=== PATIENT | female | born 1960 | race Caucasian/White ===

== ENCOUNTER 2017-05-03 21:55 | Emergency (ER) | payer MEDICARE ==
[~2017-05-03] VITALS: Ht 170.2 cm; Wt 112.0 kg
[~2017-05-03 21:55] MED LIST: ALPR0.25 PO; LISI1TAB3 PO; OXYC5TAB2 PO
[2017-05-03 23:01] LABS: MICROSCOPIC AUTO
[2017-05-03 23:04] LABS: CULTURE INDICATED? YES
[2017-05-04 00:07] LABS: BASOPHILS # (AUTO) 0.18 x10^3/uL (0-0.1); BASOPHILS % (AUTO) 2 % (0-1); EOSINOPHILS # (AUTO) 1.04 x10^3/uL (0-0.4); EOSINOPHILS % (AUTO) 9 % (1-7); LYMPHOCYTES # (AUTO) 4.41 x10^3/uL (1-3.4); LYMPHOCYTES % (AUTO) 40 % (22-44); MD NO; MEAN CORPUSCULAR HEMOGLOBIN 29.6 pg (27.0-34.8); MEAN CORPUSCULAR HGB CONC 33.2 g/dL (32.4-35.8); MEAN CORPUSCULAR VOLUME 89.2 fL (80-100); MEAN PLATELET VOLUME 7.7 fL (7.4-10.4); MONOCYTES # (AUTO) 0.62 x10^3/uL (0.2-0.8); MONOCYTES % (AUTO) 6 % (2-9); NEUTROPHILS # (AUTO) 4.92 x10^3/uL (1.8-6.8); NEUTROPHILS % (AUTO) 44 % (42-75); PLATELET COUNT 432 x10^3/uL (130-400); RED CELL DISTRIBUTION WIDTH 14.7 % (9.6-15.2)
[2017-05-04 00:16] LABS: ALANINE AMINOTRANSFERASE 21 U/L (12-78); ALBUMIN 3.5 g/dL (3.4-5.0); ANION GAP 7 mmol/L (5-15); CALCIUM 8.6 mg/dL (8.5-10.1); CHLORIDE 100 mmol/L (98-107); CREATININE 1.06 mg/dL (0.55-1.02)
[2017-05-04 00:18] LABS: ALKALINE PHOSPHATASE 87 U/L (45-117); BILIRUBIN,TOTAL 0.3 mg/dL (0.2-1.0); TOTAL PROTEIN 7.2 g/dL (6.4-8.2)
[2017-05-04 00:45] VITALS: BP 100/82
[2017-05-04] MEDS ORDERED: KETOROLAC 30 MG/1 ML ONE (00:54)
[2017-05-04] MEDS ORDERED: KETOROLAC 30 MG/1 ML IM ONE (01:00)
== END 2017-05-04 01:26 | disposition home or self-care (01) ==
LOC: ED 23:58
DX: M54.5 Low back pain (principal); R30.0 Dysuria; R10.9 Unspecified abdominal pain; J44.9 Chronic obstructive pulmonary disease, unspecified; I10 Essential (primary) hypertension
CPT/HCPCS: 36415; 74176; 80053; 81001; 83690; 85025; 87077; 87086; 96372; 99285; J1885

== ENCOUNTER 2017-09-08 08:54 | Emergency (ER) | payer MEDICARE ==
[~2017-09-08] VITALS: Ht 170.2 cm; Wt 110.0 kg
[2017-09-08] MEDS ORDERED: OXYcodone/APAP 10/325MG TABLET PO ONE (09:30)
[2017-09-08] MEDS ORDERED: WYCILLIN 1,200,000 UNITS/2 ML IM ONE (09:30)
[2017-09-08] MEDS ORDERED: OXYcodone/APAP 10/325MG TABLET ONE (11:18)
[2017-09-08] MEDS ORDERED: BICILLIN-LA 1,200,000 UNITS/2 ML IM ONE (11:30)
[2017-09-08 11:48] VITALS: BP 129/78
== END 2017-09-08 12:34 | disposition home or self-care (01) ==
LOC: ED 12:29
DX: K02.9 Dental caries, unspecified (principal); I10 Essential (primary) hypertension; F32.9 Major depressive disorder, single episode, unspecified; J44.9 Chronic obstructive pulmonary disease, unspecified; M81.0 Age-related osteoporosis without current pathological fracture; M19.90 Unspecified osteoarthritis, unspecified site; Z88.1 Allergy status to other antibiotic agents
CPT/HCPCS: 96372; 99284; J0561; J2510

== ENCOUNTER 2017-12-27 18:52 | Emergency (ER) | payer MEDICARE ==
[~2017-12-27] VITALS: Ht 170.2 cm; Wt 109.0 kg
[2017-12-27] MEDS ORDERED: HYDROmorphone 1 MG/ML, 1ML IM ONE (19:30)
[2017-12-27] MEDS ORDERED: HYDROmorphone 2 MG/ML, 1ML ONE (19:51)
[2017-12-27] MEDS ORDERED: OXYcodone/APAP 10/325MG TABLET ONE (21:21)
[2017-12-27 21:24] VITALS: BP 112/73
[2017-12-27] MEDS ORDERED: OXYcodone/APAP 10/325MG TABLET PO ONE (21:30)
== END 2017-12-27 22:04 | disposition home or self-care (01) ==
LOC: ED 21:05
DX: S80.11XA Contusion of right lower leg, initial encounter (principal); M25.571 Pain in right ankle and joints of right foot; J44.9 Chronic obstructive pulmonary disease, unspecified; I10 Essential (primary) hypertension; M81.0 Age-related osteoporosis without current pathological fracture; F32.9 Major depressive disorder, single episode, unspecified; F17.200 Nicotine dependence, unspecified, uncomplicated; W01.0XXA Fall on same level from slipping, tripping and stumbling without subsequent striking against object, initial encounter; Y93.01 Activity, walking, marching and hiking; Y99.8 Other external cause status; Y92.410 Unspecified street and highway as the place of occurrence of the external cause
CPT/HCPCS: 72190; 73590; 73610; 96372; 99284; J1170

== ENCOUNTER 2019-11-29 19:23 | Emergency (ER) | payer MEDICARE, MEDICAID ==
[~2019-11-29] VITALS: Ht 170.2 cm; Wt 100.0 kg
[~2019-11-29 19:23] MED LIST changes: +LISI1TAB23 PO; -LISI1TAB3 PO
--- NOTE | 2019-11-29 19:42 | NUR ---
CATA FROM HOME, PER EMS PT HAD GCS OF 3 AND SATURATION 50% ON RA PRIOR RECEIVING .5 OF NARCAN. PT IS NOW A&O X4 AND SPEAKING IN FULL SENCTENCES. PT REPORTS SHE TOOK 2 OXYCODONE TABLETS FOR TOOTHACHE. PLACED ON CARDIAC AND VITAL MONITORS, FALL PRECAUTIONS IN PLACE.
[2019-11-29] MEDS ORDERED: SODIUM CHLORIDE FLUSH 10ML SYR IVF ONE (20:00)
[2019-11-29] MEDS ORDERED: PENICILLIN VK 500MG TABLET PO ONE (20:00)
[2019-11-29] MEDS ORDERED: SODIUM CHLORIDE 0.9% 1,000ML IVBOLUS ONE (20:00)
--- NOTE | 2019-11-29 20:19 | NUR ---
PT TRANSPORTED TO CT.
[2019-11-29 20:26] LABS: BASOPHILS # (AUTO) 0.01 x10^3/uL (0-0.1); BASOPHILS % (AUTO) 0 % (0-1); EOSINOPHILS # (AUTO) 0.45 x10^3/uL (0-0.4); EOSINOPHILS % (AUTO) 4 % (1-7); LYMPHOCYTES # (AUTO) 1.79 x10^3/uL (1-3.4); LYMPHOCYTES % (AUTO) 14 % (22-44); MD NO; MEAN CORPUSCULAR HEMOGLOBIN 29.7 pg (27.0-34.8); MEAN CORPUSCULAR HGB CONC 32.6 g/dL (32.4-35.8); MEAN CORPUSCULAR VOLUME 91.1 fL (80-100); MEAN PLATELET VOLUME 7.8 fL (7.4-10.4); MONOCYTES # (AUTO) 0.48 x10^3/uL (0.2-0.8); MONOCYTES % (AUTO) 4 % (2-9); NEUTROPHILS # (AUTO) 9.94 x10^3/uL (1.8-6.8); NEUTROPHILS % (AUTO) 79 % (42-75); PLATELET COUNT 315 x10^3/uL (130-400); RED CELL DISTRIBUTION WIDTH 15.2 % (9.6-15.2)
--- NOTE | 2019-11-29 20:32 | NUR ---
PT RESTING ON GURNEY EASILY AROUSED. FALL PRECAUTION IN PLACE.
[2019-11-29 20:39] LABS: ALANINE AMINOTRANSFERASE 27 U/L (12-78); ALBUMIN 3.3 g/dL (3.4-5.0); ANION GAP 3 mmol/L (5-15); CALCIUM 8.5 mg/dL (8.5-10.1); CHLORIDE 106 mmol/L (98-107)
[2019-11-29] MEDS ORDERED: PENICILLIN VK 500MG TABLET ONE (20:39)
[2019-11-29 20:44] LABS: ALKALINE PHOSPHATASE 75 U/L (45-117); BILIRUBIN,TOTAL 0.4 mg/dL (0.2-1.0); TOTAL PROTEIN 6.8 g/dL (6.4-8.2); TROPONIN I < 0.015 ng/mL (0.000-0.045)
--- NOTE | 2019-11-29 21:04 | NUR ---
PT IS NOW AGITATED AND YELLING SHE WANTS TO GO HOME NOW.
--- NOTE | 2019-11-29 21:18 | NUR ---
PT WISHES TO LEAVE AMA, DISCUSSED WITH PT SHE NEEDS A SAFE RIDE HOME AND OXYGEN SATURATION NEEDS TO BE ABOVE 90% ON RA. PT CONTINUES TO GET AGITATED AND CLENCHING HER HANDS, PT IS ALERT AND ORIENTED X4 AT THIS TIME.
--- NOTE | 2019-11-29 21:28 | NUR ---
PT UNABLE TO MAINTAIN RA SATURATION ABOVE 90%, PT DROPPING TO 70% ON RA. WILL UPDATE ERMD.
[2019-11-29 22:34] VITALS: BP 91/57
--- NOTE | 2019-11-29 22:59 | NUR ---
REPORT GIVEN TO MARIA DEL CARMEN CHAVEZ.
--- NOTE | 2019-11-29 23:00 | NUR ---
RECEIVED REPORT, ASSUMED CARE. PATIENT REMAINS ASLEEP YET ROUSABLE. PLAN IS TO MONITOR O2 SAT AND RESPIRATIONS. DISCHARGE PENDING METABOLIZATION.
--- NOTE | 2019-11-30 00:40 | NUR ---
Patient awake and ambulating. VSS. Preparing for DC. Addendum: 11/30/19 at 0106 by [email or web address] Patient awake and ambulating. VSS w an O2 sat of 95% on RA. Preparing for DC.
--- NOTE | 2019-11-30 01:12 | NUR ---
Patient's IV dc'ed. patient brought to discharge in wheelchair. Cab voucher supplied. Patient awaiting transport in no apparent disctress.
== END 2019-11-30 01:16 ==
LOC: ED 21:50
DX: T40.2X1A Poisoning by other opioids, accidental (unintentional), initial encounter (principal); R55 Syncope and collapse; K02.9 Dental caries, unspecified; R94.31 Abnormal electrocardiogram [ECG] [EKG]; I10 Essential (primary) hypertension; J44.9 Chronic obstructive pulmonary disease, unspecified; F17.200 Nicotine dependence, unspecified, uncomplicated; Z90.710 Acquired absence of both cervix and uterus; Y92.89 Other specified places as the place of occurrence of the external cause
CPT/HCPCS: 36415; 70450; 80053; 80307; 83735; 84484; 85025; 93005; 96360; 99285; J7030